=== PATIENT | female | born 1985 | race Caucasian/White ===

== ENCOUNTER 2017-08-19 02:25 | Observation (INO) | payer SELFPAY ==
[2017-08-19 05:21] LABS: ADD UMIC YES; UR ASCORBIC ACID NEGATIVE (NEGATIVE); UR BACTERIA FEW /HPF (NONE SEEN); UR BILIRUBIN (Dip) NEGATIVE (NEGATIVE); UR BLOOD (Dip) 3+ mg/dL (NEGATIVE); UR CLARITY CLEAR (CLEAR); UR COLOR STRAW (YELLOW); UR GLUCOSE (Dip) NEGATIVE (NEGATIVE); UR KETONES (Dip) NEGATIVE (NEGATIVE); UR LEUKOCYTE ESTERASE (Dip) NEGATIVE Leu/ul (NEGATIVE); UR NITRITE (Dip) NEGATIVE (NEGATIVE); UR NONSQUAMOUS EPITHELIAL CELL 23 /HPF (NONE SEEN); UR RBC 22 /HPF (0-5); UR SPECIFIC GRAVITY (Dip) 1.005 (1.003-1.030); UR SQUAMOUS EPITHELIAL CELL FEW /HPF (FEW); UR TOTAL PROTEIN (Dip) NEGATIVE (NEGATIVE); UR UROBILINOGEN (Dip) NEGATIVE (NEGATIVE); UR WBC 0 /HPF (0-5)
[2017-08-19 05:48] LABS: ADD MAN DIFF? NO
[2017-08-19 05:52] LABS: BASOPHILS % 0.4 % (0.0-2.0); EOSINOPHILS # 0.2 10^3/ul (0.0-0.5); HEMOGLOBIN 14.1 g/dl (12.0-16.0); LYMPHOCYTES # 1.6 10^3/ul (0.8-2.9); LYMPHOCYTES % 18.3 % (15.0-51.0); MEAN CORPUSCULAR HEMOGLOBIN 31.5 pg (29.0-33.0); MEAN CORPUSCULAR HGB CONC 33.6 g/dl (32.0-37.0); MEAN CORPUSCULAR VOLUME 93.8 fl (82.0-101.0); MEAN PLATELET VOLUME 12.2 fl (7.4-10.4); MONOCYTE # 0.6 10^3/ul (0.3-0.9); MONOCYTES % 6.1 % (0.0-11.0); NEUTROPHIL # 6.5 10^3/ul (1.6-7.5); NEUTROPHILS % 72.9 % (39.0-77.0); PLATELET COUNT 191 10^3/UL (140-415); RED BLOOD COUNT 4.48 10^6/ul (4.20-5.40)
[2017-08-19] MEDS: KETOROLAC 60 MG INJ IM (08:13)
[2017-08-19] MEDS ORDERED: NEOSTIGMINE 3 MG/3 ML SYRINGE (11:20)
[2017-08-19] MEDS ORDERED: MEPERIDINE 100 MG INJ (11:20)
[2017-08-19] MEDS ORDERED: PROPOFOL 20 ML (11:20)
[2017-08-19] MEDS ORDERED: GLYCOPYRROLATE 0.4 MG INJ (11:20)
[2017-08-19] MEDS ORDERED: SUCCINYLCHOLINE CHLORIDE 100 MG/5 ML SYG IV (11:20)
[2017-08-19] MEDS ORDERED: ROCURONIUM 50 MG INJ (11:20)
[2017-08-19] MEDS ORDERED: LIDOCAINE 2% (SDV) 5 ML INJ (11:20)
[2017-08-19] MEDS ORDERED: ONDANSETRON 4 MG INJ ×2 (11:21→12:42)
[2017-08-19] MEDS ORDERED: METOCLOPRAMIDE 10 MG INJ (11:21)
[2017-08-19] MEDS ORDERED: CEFAZOLIN 1 GM INJ (11:21)
[2017-08-19] MEDS ORDERED: OXYCODONE/ACETAMINOPHEN (5/325) TAB PO ×2 (11:30)
[2017-08-19] MEDS ORDERED: METOCLOPRAMIDE 10 MG INJ IV (11:30)
[2017-08-19] MEDS ORDERED: FENTAnyl 50 MCG/ML VIAL IV ×2 (11:30)
[2017-08-19] MEDS ORDERED: LABETALOL HCL 20MG INJ IV (11:30)
[2017-08-19] MEDS ORDERED: HYDROmorphONE 1 MG/5 ML IV SYRINGE IV ×3 (11:30)
[2017-08-19] MEDS ORDERED: hydrALAzine 20 MG INJ IV (11:30)
[2017-08-19] MEDS ORDERED: MIDAZOLAM 1 MG/ML 2 ML INJ IV (11:30)
[2017-08-19] MEDS ORDERED: DIPHENHYDRAMINE 50 MG INJ IV (11:30)
[2017-08-19] MEDS ORDERED: EPHEDrine SULFATE 50 MG/5 ML SYG IV (11:30)
[2017-08-19] MEDS ORDERED: MEPERIDINE 25 MG INJ (12:42)
[2017-08-19] MEDS ORDERED: FENTAnyl 50 MCG/ML VIAL (12:43)
[2017-08-19] MEDS: FENTAnyl 50 MCG/ML VIAL IV ×2 (12:47→12:58)
[2017-08-19] MEDS: MEPERIDINE 25 MG INJ IV (12:48)
[2017-08-19] MEDS: ONDANSETRON 4 MG INJ IV (12:49)
[2017-08-19] MEDS: IBUPROFEN 600 MG TAB PO ×2 (18:23→23:42)
[2017-08-20] MEDS: IBUPROFEN 600 MG TAB PO (05:41)
== END 2017-08-20 12:35 | disposition home or self-care (01) ==
LOC: FTE 02:25 → MS1 13:45
DX: O03.4 Incomplete spontaneous abortion without complication (principal)
CPT/HCPCS: 36415; 76801; 76817; 81001; 84702; 85025; 86900; 86901; 88305; 96372; 96374; 96375; 99285-25